=== PATIENT | male | born 1965 | race Caucasian/White ===

== ENCOUNTER 2025-02-09 05:07 | Emergency (ER) | payer BC, OTHER ==
[2025-02-09] MEDS: Lidocaine 1% with EPINEPHrine 1:100,000 10 ML MDV ONE (07:43)
[2025-02-09] MEDS: Lidocaine 1% with EPINEPHrine 1:100,000 10 ML MDV INJECT ONE (07:45)
[2025-02-09] MEDS: Clindamycin HCl 150 MG Cap PO ONE (09:13)
[2025-02-09] MEDS: Doxycycline Monohydrate 100 MG Cap PO ONE (09:13)
== END 2025-02-09 09:43 | disposition home or self-care (01) ==
LOC: MW.ED 08:29
DX: S41.152A Open bite of left upper arm, initial encounter (principal); W54.0XXA Bitten by dog, initial encounter
CPT/HCPCS: 12002; 73060; 99283; A9270